=== PATIENT | female | born 1990 | race African-American/Black ===

== ENCOUNTER 2018-02-01 19:30 | Emergency (ER) | payer BC, OTHER ==
[~2018-02-01] VITALS: Ht 162.6 cm; Wt 120.2 kg
[2018-02-01 20:22] LABS: URINE BILIRUBIN NEGATIVE (Negative); URINE BLOOD NEGATIVE (Negative); URINE CLARITY CLEAR; URINE COLOR YELLOW; URINE GLUCOSE-RANDOM* NEGATIVE (Negative); URINE KETONES NEGATIVE (Negative); URINE NITRITE-REFLEX NEGATIVE (Negative); URINE PROTEIN (DIPSTICK) NEGATIVE (Negative); URINE UROBILINOGEN 0.2 E.U./dl (0.2-1.0)
[2018-02-01 20:24] LABS: URINE LEUKOCYTES-REFLEX TRACE (Negative)
[2018-02-01] MEDS ORDERED: MOBIC15 MG PO (22:45)
[2018-02-01 23:29] VITALS: BP 129/84
[2018-02-02 14:10] LABS: NEISSERIA GONORRHEA-PCR Negative (Negative)
== END 2018-02-01 23:32 | disposition home or self-care (01) ==
LOC: ER 19:30
PROVIDERS: Emergency Medicine
DX: R10.2 Pelvic and perineal pain (principal); Z88.0 Allergy status to penicillin

== ENCOUNTER 2018-04-09 16:00 | Emergency (ER) | payer OTHER ==
[~2018-04-09] VITALS: Ht 162.6 cm; Wt 102.5 kg
[~2018-04-09 16:00] MED LIST: MOBIC15 MG PO
[2018-04-09 17:29] VITALS: BP 131/94
[2018-04-09 17:35] LABS: URINE BILIRUBIN NEGATIVE (Negative); URINE BLOOD 1+ (Negative); URINE CLARITY CLOUDY; URINE COLOR YELLOW; URINE GLUCOSE-RANDOM* NEGATIVE (Negative); URINE KETONES NEGATIVE (Negative); URINE PROTEIN (DIPSTICK) TRACE (Negative); URINE SPECIFIC GRAVITY 1.015 (1.005-1.035); URINE UROBILINOGEN 0.2 E.U./dl (0.2-1.0)
[2018-04-09 17:36] LABS: URINE LEUKOCYTES-REFLEX 3+ (Negative); URINE NITRITE-REFLEX POSITIVE (Negative)
[2018-04-09 17:39] LABS: SQUAMOUS 4-10 Moderate /LPF (0-3)
[2018-04-09 17:41] LABS: BACTERIA-REFLEX >30 Many /HPF (None Seen); CASTS None Seen /LPF (None Seen); CRYSTALS None Seen /LPF (None Seen); URINE WBC-REFLEX >25 Many /HPF (0-5)
[2018-04-09 17:42] LABS: URINE RBC 3-10 Few /HPF (0-2)
[2018-04-09] MEDS ORDERED: ACETAZOLAMIDE250 M1 PO (17:51)
[2018-04-09] MEDS ORDERED: BACTRIM DS TAB1 EACH PO (17:56)
== END 2018-04-09 17:59 | disposition home or self-care (01) ==
LOC: ER 16:00
PROVIDERS: Emergency Medicine
DX: Z20.2 Contact with and (suspected) exposure to infections with a predominantly sexual mode of transmission (principal); J45.909 Unspecified asthma, uncomplicated; G93.2 Benign intracranial hypertension; Z88.0 Allergy status to penicillin